=== PATIENT | female | born 1960 | race Caucasian/White ===

== ENCOUNTER 2017-06-24 09:21 | Emergency (ER) | payer MEDICAID ==
[~2017-06-24] VITALS: Ht 165.1 cm; Wt 109.8 kg
[2017-06-24] MEDS ORDERED: IBUP-1953 PO (09:32)
[2017-06-24] MEDS ORDERED: HYDROCODONE/APAP 5/325MG 1 EACH TABLET ONE (09:35)
[2017-06-24 09:42] VITALS: BP 145/94
[2017-06-24] MEDS ORDERED: HYDROCODONE/APAP 5/325MG 1 EACH TABLET PO ONE (10:00)
== END 2017-06-24 09:43 | disposition home or self-care (01) ==
LOC: ER 09:24
DX: M17.0 Bilateral primary osteoarthritis of knee (principal); M25.562 Pain in left knee; M25.561 Pain in right knee
CPT/HCPCS: 99283; A4606; Z7610